=== PATIENT | male | born 1960 | race Caucasian/White ===

== ENCOUNTER 2018-03-23 00:15 | Day surgery (SDC) | payer OTHER ==
[~2018-03-23 00:15] MED LIST: CLON.5 PO; DULO30 PO; LISI5 PO; [UNRECOGNIZED DRUG - REMARK]
== END 2018-03-23 22:38 | disposition home or self-care (01) ==
LOC: WOUND 00:15
DX: I96 Gangrene, not elsewhere classified (principal); M79.674 Pain in right toe(s); F17.210 Nicotine dependence, cigarettes, uncomplicated; I10 Essential (primary) hypertension; J44.9 Chronic obstructive pulmonary disease, unspecified; G62.9 Polyneuropathy, unspecified; Z79.82 Long term (current) use of aspirin
CPT/HCPCS: G0463

== ENCOUNTER 2018-05-10 02:15 | Day surgery (SDC) | payer OTHER ==
[~2018-05-10] VITALS: Ht 149.9 cm; Wt 82.0 kg
[~2018-05-10 02:15] MED LIST changes: +ALBU90OI61 INH; +ASPI81CH PO; +ATOR10 PO; +Advair Hfa 230-12 GM INH; +CLOP75 PO; +GABA100 PO; +IBUP800 PO
--- NOTE | 2018-05-10 12:01 | NUR ---
PT RESTING COMFORATBLYCAREN. VSS. FAMILY AT BEDSIDE. CALL LIGHT WITHIN REACH.
--- NOTE | 2018-05-10 12:27 | NUR ---
PT RESTING COMFORTABLY. VSS. NADN. R FEM SITE REMAINS STABLE. ADMINISTERED PLAVIX 300MG PO PER DR TAYLOR ORDERS
--- NOTE | 2018-05-10 13:08 | NUR ---
DISCHARGE INSTRUCTIONS REVIEWED WITH PT AND FAMILY MEMBERS PRESENT WITH EMPHASIS ON INFECTION CONTROL AND MOBILITY RESTRICTIONS TO MAINTAIN HEMOSTASIS. QUESTIONS ANSWERED. SIGNED ACKNOWLEDGEMENTS OBTAINED. AMBULATED PT APPROXIMATELY 250 FEET WITH EXAMINATION OF GROIN SITE PRE AND POST AMBULATION FOR SITE INTEGRITY. SMALL, QUARTER SIZE BLEB OF BLOOD TRAPPED BENEATH TEGADERM DSG; NO ACTIVE BLEEDING APPARENT. SITE UNCHANGED OVER POST-PROCEDURAL COURSE AND SURROUNDING TISSUE REMAINS SOFT WITH HEMATOMA EVIDENT. NO IMBALANCE OR GAIT DISTURBANCE OBSERVED. L AC IV DC'D WITH CANNULA TIP INTACT. FOLDED 2X2 GAUZE PLACED WITH LIGHT COBAN WRAP. ENCOURAGED TO LEAVE DSG IN PLACE FOR APPROX 1H DUE TO MEGADOSING WITH PLAVIX EARLIER. PT DRESSED SELF WITH MINIMAL ASSISTANCE. PERMITTED TO EXIT HOSPITAL BY AMBULATION, ACCOMPANIED BY FAMILY.
== END 2018-05-10 13:15 | disposition home or self-care (01) ==
LOC: MHTC 02:15
DX: I73.9 Peripheral vascular disease, unspecified (principal); I73.1 Thromboangiitis obliterans [Buerger's disease]; F10.20 Alcohol dependence, uncomplicated; J44.9 Chronic obstructive pulmonary disease, unspecified; I10 Essential (primary) hypertension; G62.9 Polyneuropathy, unspecified; N52.9 Male erectile dysfunction, unspecified; F17.200 Nicotine dependence, unspecified, uncomplicated; M19.90 Unspecified osteoarthritis, unspecified site; Z86.73 Personal history of transient ischemic attack (TIA), and cerebral infarction without residual deficits
CPT/HCPCS: 99152; 99153; C1714; C1725; C1760; C1769; C1874; C1884; C1887; C1894; C2623; J1644; J2250; J3010; J7030; Q9967

== ENCOUNTER 2018-09-16 06:01 | Day surgery (SDC) | payer OTHER ==
[~2018-09-16] VITALS: Ht 175.3 cm; Wt 81.0 kg
--- NOTE | 2018-09-16 12:53 | NUR ---
Pt has been up ambulatory voided, reviewed instructions with patient to start plavix tomorrow. Pt verbazlies understanding. IV left a/c #20 removed cath intact. Pt to take b/p meds jeanette he arrives home today.
== END 2018-09-16 13:30 | disposition home or self-care (01) ==
LOC: MHTC 06:01
PROC: 047L3D1 Dilation of Left Femoral Artery with Intraluminal Device, using Drug-Coated Balloon, Percutaneous Approach (ICD-10-PCS; principal; 2018-09-16)
PROC: 047N3D1 Dilation of Left Popliteal Artery with Intraluminal Device, using Drug-Coated Balloon, Percutaneous Approach (ICD-10-PCS; principal; 2018-09-16)
DX: I77.1 Stricture of artery (principal); I77.77 Dissection of artery of lower extremity; I73.9 Peripheral vascular disease, unspecified; Z79.899 Other long term (current) drug therapy; Z79.82 Long term (current) use of aspirin; Z79.51 Long term (current) use of inhaled steroids
CPT/HCPCS: 37226; 75710; 99152; 99153; C1760; C1769; C1773; C1874; C1887; C1894; C2623; J0360; J1644; J2250; J3010; J7030; Q9967

== ENCOUNTER 2019-06-15 13:27 | Day surgery (SDC) | payer OTHER ==
[~2019-06-15] VITALS: Ht 175.3 cm; Wt 83.2 kg
[~2019-06-15 13:27] MED LIST changes: +FLUT1DIS2 INH
--- NOTE | 2019-06-15 14:14 | NUR ---
NO CHANGES TO LEFT GROIN SITE; SOFT NON-TENDER WITH NO HEMATOMA AND NO PULSATILE BLEEDING AND INTACT DRESSING. PT ATE 95% OF LUNCH.
--- NOTE | 2019-06-15 19:10 | NUR ---
DISCHARGE PT REMAINED A&OX3 AND DENIED ANY PAIN DURING RECOVERY. LEFT PEDAL SITES REMAIN CDI-NO HEMATOMA NOTED. IV DC'D WITH CANULA IN TACT. PT UP TO RESTROOM AND DRESSED SELF INDEPENDATNLY. DISCHARGE PAPERWORK GONE OVER WITH PT. PT VERBALLY STATED THE UNDERSTANDING OF THE DISCHARGE EDCUATION AND DENIED ANY QUESTIONS AT THIS TIME. PT CALLED FOR A RIDE AND THIS NURSE WHEELED HIM OUT.
== END 2019-06-15 22:40 | disposition home or self-care (01) ==
LOC: MHTC 13:27
DX: I70.211 Atherosclerosis of native arteries of extremities with intermittent claudication, right leg (principal); J44.9 Chronic obstructive pulmonary disease, unspecified; I10 Essential (primary) hypertension; F17.210 Nicotine dependence, cigarettes, uncomplicated; Z79.82 Long term (current) use of aspirin; Z79.899 Other long term (current) drug therapy; Z79.02 Long term (current) use of antithrombotics/antiplatelets
CPT/HCPCS: 76937; 85347; 99152; 99153; C1725; C1769; C1887; C1894; C2623; J1644; J2250; J3010; J7030; Q9967

== ENCOUNTER 2019-06-29 08:20 | Day surgery (SDC) | payer OTHER ==
[~2019-06-29] VITALS: Ht 175.3 cm; Wt 83.2 kg
--- NOTE | 2019-06-29 10:52 | NUR ---
SHEATH PULLED PER TUNE UP MECHANIC, LEFT PEDAL SITE, PRESSURE HELD FOR 15 MINUTES.
--- NOTE | 2019-06-29 12:14 | NUR ---
PT PROVIDED WITH MEAL TRAY, TOLERATES PO FOOD/ FLUIDS WITH NO DIFFICULTIES. LEFT PT PEDAL ACCESS SITE APPEARS TO BE SOFT NON TENDER WITH NO ACTIVE BLEEDING, OOZING, OR PAIN NOTED. CLEAR TEGADERM INTACT. PT AOX4. VSS. DENIES CP OR SOB. CALL LIGHT IN REACH.
--- NOTE | 2019-06-29 12:45 | NUR ---
pt discharge gone over with tp, verbalizes understanding. saline lock out with catheter intact. pedal site on left stable. pt up to bathroom and ambulatory, site remains stable. pt to private vehicle per w/c.
== END 2019-06-29 22:40 | disposition home or self-care (01) ==
LOC: MHTC 08:20
DX: I70.211 Atherosclerosis of native arteries of extremities with intermittent claudication, right leg (principal); Z88.8 Allergy status to other drugs, medicaments and biological substances
CPT/HCPCS: 37224; 75710; 75774; 76937; 99152; 99153; C1769; C1887; C1894; C2623; J1644; J2250; J3010; J7030; Q9967